=== PATIENT | female | born 1955 | race African-American/Black ===

== ENCOUNTER 2018-01-19 16:32 | Inpatient (IN) | payer MEDICARE, OTHER ==
[~2018-01-19] VITALS: Ht 162.6 cm; Wt 89.8 kg
[2018-01-19 17:03] VITALS: BP 174/106
[2018-01-19] MEDS ORDERED: Norco 5mg/325mg tab ORAL ONE ×3 (17:30→21:30)
--- NOTE | 2018-01-19 17:30 | Emergency Room Report ---
History of Present Illness General Chief Complaint: Lower Back Pain or Injury Source: Patient Present Illness HPI 62-year-old female presents to the emergency department complaining of 10 out of 10 in severity pain in the lower back and bilateral hips as well as head status post mechanical slip and fall earlier today. Patient reports that she hit the right side of her head and denies loss of consciousness. Pt. reports that prior to fall she experienced dizziness and states she has been having dizziness intermittently x 3 months as well as dull right sided MARISCAL that comes and goes. Patient states that she has a cardiac history as well as TIA x 2 and that she normally goes to [facility]. Pt. reports taking Motrin with no relief. Pt. reports that she was on blood thinning medications for a while but was d/c'd from them. Pt. denies fevers or chills. she states she is having urinary frequency, no dysuria or hematuria. Allergies: Coded Allergies: No Known Allergies (Unverified , 01/19/18) Patient History Past Medical History: see triage record Past Surgical History: none Pertinent Family History: none Now: No Reviewed Nursing Documentation: PMH: Agreed; PSxH: Agreed Nursing Documentation-PMH Hx Cardiac Problems: Yes - stent Hx Hypertension: Yes - hyperlipidemia, arthritis, kidney problems Hx Asthma: Yes - emphysema Review of Systems All Other Systems: negative except mentioned in HPI Physical Exam Vital Signs Date Time Temp Pulse Resp B/P (MAP) Pulse Ox O2 Delivery O2 Flow Rate FiO2 01/19/18 16:50 99.0 80 18 174/106 97 99.0 Sp02 EP Interpretation: reviewed, normal General Appearance: alert, GCS 15, non-toxic, mild distress Head: normocephalic, atraumatic - no palpable hematomas, TTP to the right temporal area. Eyes: bilateral eye normal inspection, bilateral eye PERRL ENT: hearing grossly normal, normal voice Neck: full range of motion, no bony tend Respiratory: lungs clear, normal breath sounds, speaking full sentences Cardiovascular #1: regular rate, rhythm Gastrointestinal: non tender, soft Genitourinary: normal inspection, no CVA tenderness Musculoskeletal: back normal, normal range of motion, tender - TTP in the Lumbosacral area as well as bilateral hips. Pt. is ambulatory with cane assistance and has a compensatory gait/ limp, no dragging noted. Neurologic: alert, oriented x3, responsive, motor strength/tone normal, sensory intact, speech normal, grossly normal Psychiatric: judgement/insight normal Skin: normal color, no rash, warm/dry, well hydrated, other - no open wounds, bruises or abrasions noted. Medical Decision Making PA Attestation Dr. Perry is my supervising physician whom pt. management has been discussed with. Diagnostic Impression: Primary Impression: Dizziness Additional Impressions: Contusion of back Qualified Codes: S20.229A - Contusion of unspecified back wall of thorax, initial encounter Hip pain, bilateral Fall Qualified Codes: W19.XXXA - Unspecified fall, initial encounter ER Course 62-year-old female presents to the emergency department complaining of 10 out of 10 in severity pain in the lower back and bilateral hips as well as head status post mechanical slip and fall earlier today. Patient reports that she hit the right side of her head and denies loss of consciousness. Pt. reports that prior to fall she experienced dizziness and states she has been having dizziness intermittently x 3 months as well as dull right sided MARISCAL that comes and goes. Patient states that she has a cardiac history as well as TIA x 2 and that she normally goes to [facility]. Pt. reports taking Motrin with no relief. Pt. reports that she was on blood thinning medications for a while but was d/c'd from them. Pt. denies fevers or chills. she states she is having urinary frequency, no dysuria or hematuria. Ddx considered but are not limited to Fracture, dislocation, contusion, Sprain/ Strain/Spasm, Epidural abscess, ICH/Subdural hematoma just to name a few. Vital signs: are WNL, pt. is afebrile H&PE are most consistent with musculoskeletal injury will perform imaging to r/ o fractures/dislocations. ORDERS: - CT Head, C-spine, and Abdomen/pelvis Non Contrasted -EK BPM -CBC,CMP, Troponin: Unremarkable -UA: unremarkable ED INTERVENTIONS: -Toradol IV - [place] PO x 2 DISPOSITION: at this time pt. will be admitted to Dr. Frazier for Dizziness. Dr. Frazier was contacted when pt. initially presented, will do work-up and admit to Dr. Frazier to [facility] floor to continue pt. care management. Labs Test 10/4/18 17:55 White Blood Count 6.4 K/UL (4.8-10.8) Red Blood Count 4.29 M/UL (4.20-5.40) Hemoglobin 13.9 G/DL (12.0-16.0) Hematocrit 42.6 % (37.0-47.0) Mean Corpuscular Volume 99 FL (80-99) Mean Corpuscular Hemoglobin 32.3 PG (27.0-31.0) Mean Corpuscular Hemoglobin Concent 32.5 G/DL (32.0-36.0) Red Cell Distribution Width 13.6 % (11.6-14.8) Platelet Count 277 K/UL (150-450) Mean Platelet Volume 6.5 FL (6.5-10.1) Neutrophils (%) (Auto) 35.4 % (45.0-75.0) Lymphocytes (%) (Auto) 50.7 % (20.0-45.0) Monocytes (%) (Auto) 8.4 % (1.0-10.0) Eosinophils (%) (Auto) 3.5 % (0.0-3.0) Basophils (%) (Auto) 2.0 % (0.0-2.0) Sodium Level 143 MMOL/L (136-145) Potassium Level 3.9 MMOL/L (3.5-5.1) Chloride Level 109 MMOL/L (98-107) Carbon Dioxide Level 26 MMOL/L (21-32) Anion Gap 8 mmol/L (5-15) Blood Urea Nitrogen 16 mg/dL (7-18) Creatinine 0.9 MG/DL (0.55-1.30) Estimat Glomerular Filtration Rate > 60 mL/min (>60) Glucose Level 100 MG/DL (74-106) Calcium Level 10.8 MG/DL (8.5-10.1) Total Bilirubin 0.3 MG/DL (0.2-1.0) Aspartate Amino Transf (AST/SGOT) 75 U/L (15-37) Alanine Aminotransferase (ALT/SGPT) 69 U/L (12-78) Alkaline Phosphatase 99 U/L (46-116) Troponin I 0.009 ng/mL (0.000-0.056) Total Protein 8.0 G/DL (6.4-8.2) Albumin 3.2 G/DL (3.4-5.0) Globulin 4.8 g/dL Albumin/Globulin Ratio 0.7 (1.0-2.7) EKG Diagnostic Results EP Interpretation: Dr. Perry Rate: normal - 74 BPM Rhythm: NSR ST Segments: no acute changes ASA given to the pt in ED: No PA Scribe Text This Interpretation was scribed by JAYDON Ley. CT/MRI/US Diagnostic Results CT/MRI/US Diagnostic Results #1: Imaging Test Ordered: CT Head No Contrast Impression sinusitis, no mention of acute bleed, shift, mass effect or fractures per Dr. TRAN CT/MRI/US Diagnostic Results #2: Imaging Test Ordered: CT C-SPine No contrast Impression per radiology report no mention of acute fractures. CT/MRI/US Diagnostic Results #3: Imaging Test Ordered: CT Abdomen and Pelvis No Contrast Impression per radiology report no mention of acute fractures. Last Vital Signs Date Time Temp Pulse Resp B/P (MAP) Pulse Ox O2 Delivery O2 Flow Rate FiO2 01/19/18 17:03 99.0 80 18 174/106 97 99.0 Status: improved Disposition: ADMITTED INPATIENT Condition: Serious Referrals: Laurie Fernandez MD (PCP) Eli Ley Jan 19, 2018 17:30
[2018-01-19] MEDS ORDERED: Ketorolac 30mg Inj IV ONE (18:15)
[2018-01-19 18:31] LABS: ANION GAP 8 mmol/L (5-15); BLOOD UREA NITROGEN 16 mg/dL (7-18); CALCIUM 10.8 MG/DL (8.5-10.1); CARBON DIOXIDE 26 MMOL/L (21-32); CHLORIDE 109 MMOL/L (98-107); CREATININE 0.9 MG/DL (0.55-1.30); POTASSIUM 3.9 MMOL/L (3.5-5.1); SODIUM 143 MMOL/L (136-145)
[2018-01-19 18:35] LABS: ALANINE AMINOTRANSFERASE 69 U/L (12-78); ALBUMIN 3.2 G/DL (3.4-5.0); ALBUMIN/GLOBULIN RATIO 0.7 (1.0-2.7); ALKALINE PHOSPHATASE 99 U/L (46-116); ASPARTATE AMINO TRANSFERASE 75 U/L (15-37); BILIRUBIN,TOTAL 0.3 MG/DL (0.2-1.0)
[2018-01-19 18:42] LABS: EOSINOPHILS % (AUTO) 3.5 % (0.0-3.0); HEMATOCRIT 42.6 % (37.0-47.0); HEMOGLOBIN 13.9 G/DL (12.0-16.0); LYMPHOCYTES % (AUTO) 50.7 % (20.0-45.0); MEAN CORPUSCULAR VOLUME 99 FL (80-99); MONOCYTES % (AUTO) 8.4 % (1.0-10.0); NEUTROPHILS % (AUTO) 35.4 % (45.0-75.0); PLATELET COUNT 277 K/UL (150-450); RED BLOOD COUNT 4.29 M/UL (4.20-5.40); RED CELL DISTRIBUTION WIDTH 13.6 % (11.6-14.8); WHITE BLOOD COUNT 6.4 K/UL (4.8-10.8)
[2018-01-19 21:00] VITALS: BP 140/90
[2018-01-19 22:09] LABS: APPEARANCE,URINE CLEAR; BILIRUBIN, URINE NEGATIVE (NEGATIVE); GLUCOSE, URINE (UA) NEGATIVE (NEGATIVE); KETONES,URINE NEGATIVE (NEGATIVE); LEUKOCYTE ESTERASE ,URINE NEGATIVE (NEGATIVE); NITRITE,URINE NEGATIVE (NEGATIVE); PH,URINE 6 (4.5-8.0); PROTEIN,URINE NEGATIVE (NEGATIVE); UROBILINOGEN,URINE 1 MG/DL (0.0-1.0)
[2018-01-19 22:10] LABS: COLOR,URINE YELLOW
[2018-01-19] MEDS ORDERED: Acetaminophen 500mg (ES) tab ORAL PRN (23:45)
[2018-01-20] MEDS: Albuterol/Ipratropium 3ml neb HHN SCH ×4 (01:01→20:39)
[2018-01-20] MEDS ORDERED: Acetaminophen 500mg (ES) tab ORAL PRN ×2 (03:30→19:00)
[2018-01-20 03:36] VITALS: BP 157/94
[2018-01-20] MEDS: Labetalol 200mg tab ORAL SCH ×3 (04:28→21:08)
[2018-01-20] MEDS: Norco 5mg/325mg tab ORAL PRN ×3 (04:29→19:32)
[2018-01-20 08:00] VITALS: BP 170/107
[2018-01-20] MEDS: Docusate 100mg cap ORAL SCH ×2 (08:12→17:12)
--- NOTE | 2018-01-20 08:35 | Diagnostic Imaging Report ---
Indication: Neck pain, status post fall Technique: Spiral acquisitions obtained through the cervical spine. No IV contrast utilized. Multiplanar reconstructions were generated. Total dose length product 1751.6 mGycm. CTDIvol(s) 70.38,20.94 mGy. Dose reduction achieved using automated exposure control. Comparison: none Findings: No acute fractures. No dislocations. Normal bony alignment. No prevertebral soft tissue swelling. Vertebral heights are preserved. At C3-4, there is mild degenerative disc narrowing. No significant disc bulge or protrusion, spinal stenosis, or neural foraminal stenosis. At C4-5, there is mild degenerative disc narrowing, minimal posterior broad-based annular bulge. Minimal degenerative right neural foramina narrowing. At C5-6, there is moderate degenerative disc narrowing. There is moderate narrowing of the right neural foramen. At C6-7, there is moderate degenerative disc narrowing. And significant disc bulge or protrusion, spinal stenosis, or neural foraminal stenosis. At C7-T1, no significant disc bulge or protrusion, spinal stenosis, or neural foraminal stenosis. Bullous changes are seen at the lung bases. No gross cervical mass or adenopathy. The visualized upper aerodigestive tract is unremarkable. Impression: Mild degenerative changes, as described. No acute bony trauma Incidental finding of bilateral apical pulmonary bullous changes This agrees with the preliminary interpretation provided overnight by Dr. Aguero The CT scanner at [facility] is accredited by the [employer] and the scans are performed using protocols designed to limit radiation exposure to as low as reasonably achievable to attain images of sufficient resolution adequate for diagnostic evaluation.
--- NOTE | 2018-01-20 08:36 | Diagnostic Imaging Report ---
Indications: Head pain, status post fall Technique: Spiral acquisitions obtained through the brain. Angled axial and coronal 5 x 5 mm slices were reconstructed. Total dose length product 1751.6 mGycm. CTDI vol(s) 70.38,20.94 mGy. Dose reduction achieved using automated exposure control Comparison: None. Findings: 6 there is mild age-related cerebral volume loss. No acute intracranial hemorrhage or edema. No mass effect nor midline shift. Normal dupont-white differentiation. Visualized orbits are unremarkable. There is left maxillary sinus disease. Intact calvarium. Normal dupont-white differentiation. Minimal periventricular deep white matter low-attenuation, consistent with chronic ischemic change noted. Impression: Age-related changes. Negative for acute intracranial bleed or mass effect Left maxillary sinus disease This agrees with the preliminary interpretation provided overnight by Dr. Aguero The CT scanner at [facility] is accredited by the [employer] and the scans are performed using protocols designed to limit radiation exposure to as low as reasonably achievable to attain images of sufficient resolution adequate for diagnostic evaluation.
--- NOTE | 2018-01-20 08:47 | Diagnostic Imaging Report ---
Indication: Tenderness. Pain in lower back and bilateral hips status post mechanical fall earlier today Technique: Spiral acquisitions obtained through the abdomen and pelvis. No oral contrast utilized, per emergency room physician request No IV contrast utilized, per referring physician request.. Multiplanar reconstructions were generated. Total dose length product 1006.5 mGycm. CTDIvol(s) 19.51 mGy. Dose reduction achieved using automated exposure control Comparison: None Findings: Small bulla is seen at the right lung base. The heart is mildly enlarged. The bones demonstrate degenerative spondylosis changes. There are otherwise intact. No significant soft tissue hematoma demonstrated. Lack of IV contrast limits assessment of the solid organs. The liver, gallbladder, bile ducts, pancreas, spleen, adrenals, right kidney are all grossly unremarkable. A cyst is seen coming off the medial lower pole of the left kidney. Uterus is unremarkable. 19 mm cyst is seen in the right ovary. No evidence of colonic diverticulosis. No evidence of diverticulitis. Small appendicolith is demonstrated at the orifice of the appendix, appendix otherwise normal. No small bowel distention. No free or loculated intraperitoneal gas or fluid. There is a tiny fat-containing umbilical hernia. Impression: No acute abnormality or evidence of significant posttraumatic abnormality. Note, however, that assessment of the solid organs is limited in the absence of IV contrast Left renal cyst and right ovarian cyst, presumably benign, no further follow-up necessary Borderline cardiomegaly Evidence of bullous COPD Other incidental findings as noted, including degenerative spondylosis, small fat-containing umbilical hernia This agrees with the preliminary interpretation provided overnight by Dr. Aguero The CT scanner at [facility] is accredited by the [employer] and the scans are performed using protocols designed to limit radiation exposure to as low as reasonably achievable to attain images of sufficient resolution adequate for diagnostic evaluation.
[2018-01-20] MEDS ORDERED: Labetalol 200mg tab ORAL SCH (09:00)
[2018-01-20] MEDS ORDERED: Norco 5mg/325mg tab ORAL PRN (09:00)
[2018-01-20] MEDS ORDERED: Heparin 5000 units/ml inj SUBQ SCH (09:00)
[2018-01-20] MEDS ORDERED: Aspirin Baby 81mg ORAL SCH (09:00)
[2018-01-20] MEDS ORDERED: Losartan 50mg tab ORAL SCH (09:00)
[2018-01-20 10:56] VITALS: BP 159/90
[2018-01-20] MEDS ORDERED: Gadavist 7.5mMol/7.5ml vial IV PRN (11:30)
[2018-01-20] MEDS ORDERED: HYDROmorphone 2mg tab ORAL PRN (12:38)
--- NOTE | 2018-01-20 15:14 | Consultation ---
Consult Note Consult Note NEUROLOGY CONSULTATION: Full note dictated #[id number] 62 y/o, RH, BF with PH of HTN, CAD, CVD with prior strokes with left paresis, arthritis and chronic LBP. On 01/19/18 she was showering felt lightheaded, and then passed out. He was brought to the hospital for increased buttock and LBP. Her C-spine CT revealed stenosis at the C6-7 level and thus this evaluation was requested by Dr Womack. ON EXAM: Problems with orientation, memory, HCF, language. Brisker left UE/LE DTRs Slow gait. CT of C-spine with "moderate degenerative disc narrowing" at the C6-7 level. IMPRESSION: 1. Syncope - most probably vasovagal. 2. Moderate C6-7 stenosis with no myelopathic signs. REC: Await MRI of C-spine. W/U syncope with cardiac monitoring and labs. Vicente Sow M.D., M.S.P.Gilda. VICENTE SOW Jan 20, 2018 15:14
--- NOTE | 2018-01-20 17:03 | Diagnostic Imaging Report ---
Indication: Cervical spine pain status post mechanical fall yesterday Technique: Sagittal T1 FLAIR, sagittal T2 FRFSE, sagittal STIR, axial T2 FRFSE, sagittal 3-D COSMIC ASPIR, pre and postcontrast sagittal and axial T1 fat saturated images of the cervical spine Comparison: CT cervical spine 01/19/2018 Findings: Bony alignment is normal. Vertebral body heights are preserved. Vertebral body marrow signal is normal. No signal abnormality demonstrated to suggest fracture. No significant signal abnormality is seen in the soft tissues to suggest ligamentous injury.. No prevertebral soft tissue swelling. No cord signal abnormality demonstrated. At C3-4, there is minimal circumferential annular bulge. No significant disc bulge or protrusion, spinal stenosis, or neural foraminal stenosis. At C4-5, there is mild right neural foraminal stenosis. There is minimal circumferential annular bulge. No evidence of spinal stenosis. At C5-6, there is mild to moderate degenerative disc narrowing. There is mild narrowing of the right neural foramen. No significant disc bulge or protrusion or spinal stenosis. At C6-7, there is mild degenerative disc narrowing. No significant disc bulge or protrusion, spinal stenosis, or neural foraminal stenosis. At the remaining levels, no significant disc bulge or protrusion, spinal stenosis, or neural foraminal narrowing. Postcontrast images demonstrate no unusual contrast enhancement. Impression: No evidence of acute bony trauma, acute ligamentous injury, or abnormal contrast enhancement. Mild degenerative changes, as detailed above
--- NOTE | 2018-01-20 17:15 | History and Physical Report ---
DATE OF ADMISSION: 01/19/2018 CHIEF COMPLAINT: Syncopal episode. HISTORY OF PRESENT ILLNESS: This is a 62-year-old female, who presented to the emergency department after a fall and hitting her head. The patient claims that she lost her consciousness and she fell in the shower and hit her head yesterday. Following the fall, the patient started having severe headaches. PAST MEDICAL HISTORY: 1. Hypertensive cardiovascular disease. 2. Ischemic heart disease. 3. Status post coronary stenting. 4. Hyperlipidemia. 5. Chronic kidney disease. 6. Degenerative joint disease. MEDICATIONS: Allopurinol, amlodipine, baby aspirin, chlorthalidone, Colace, oral iron, labetalol, Lidoderm, and losartan. ALLERGIES: No known drug allergies. FAMILY HISTORY: Unremarkable. SOCIAL HISTORY: She lives at home. HABITS: She is nonsmoker and nondrinker. There is no history of illicit drug abuse. REVIEW OF SYSTEMS: HEENT: Significant for headaches following the fall. RESPIRATORY: She denies shortness of breath, cough, or hemoptysis. CARDIAC: She denies chest pain or palpitations. GASTROINTESTINAL: No history of hematochezia, melena, hematemesis, diarrhea, or constipation. NEUROLOGICAL: Significant for the above described syncopal episode. PHYSICAL EXAMINATION: GENERAL: This is an elderly female, who is in no acute distress. VITAL SIGNS: Blood pressure 159/90, pulse 75 and regular, respirations 18, and temperature not well recorded. The recording is 207.1, which is obviously false. The previous one is 97.3. HEENT: The head is normocephalic and atraumatic. Pupils are equal, round, and reactive to light and accommodation consensually. NECK: Supple. Trachea midline. There was no lymphadenopathy or thyromegaly. LUNGS: Clear to auscultation and percussion. HEART: Regular rate and rhythm without rubs, murmurs, or gallops. ABDOMEN: Soft and nontender. Bowel sounds were active. EXTREMITIES: No clubbing, cyanosis, or edema. NEUROLOGIC: She is alert and oriented x4. Cranial nerves II through XII intact. LABORATORY AND ANCILLARY DATA: Serum calcium 10.8 and albumin 3.2. Otherwise, chemistry within normal limits. CBC within normal limits. A CT scan of abdomen and pelvis shows left renal cyst and right ovarian cyst presumably benign, borderline cardiomegaly, evidence of bullous COPD, degenerative spondylosis, and small fat containing the umbilical hernia. Cervical spine CT, no fracture, [id number] degenerative changes, especially moderate degenerative disc narrowing at C6-7. There is a significant disc bulge protrusion and spinal stenosis. At C6-7, there is moderate degenerative disc narrowing and significant disc bulge. A CT scan of the head, no significant changes. ASSESSMENT: 1. Syncopal episode. 2. Hypertensive cardiovascular disease. 3. Ischemic heart disease. 4. Status post coronary stenting. 5. Hyperlipidemia. 6. Chronic kidney disease. 7. Degenerative joint disease. 8. Evidence on cervical spine CT of Critical C6-7 disc bulge! PLAN: There is no Neurology services in this hospital or Neurosurgery. The patient needs to be transferred to higher level of care. We will put the patient on transfer list for [facility]. Called Dr. Cassidy Underwood Spine Surgeon @ [facility]. Kavita on Transfer List. Obtain MRI of C. Spine. Called Dr. Kristopher Young for Neuro Consult. Bed Rest. Laurie Fernandez M.D. DR: NAKITA JOB#: [id number] CC: MILY
--- NOTE | 2018-01-20 19:15 | Consultation ---
DATE OF CONSULTATION: 01/20/2018 NEUROLOGY CONSULTATION CONSULTING PHYSICIAN: Kristopher Young M.D. REQUESTING PHYSICIAN: Laurie Fernandez M.D. HISTORY: Ms. Mili Pressley is a 62-year-old, right-handed, black lady, who does have a past history of hypertension, coronary artery disease with angina, cerebrovascular disease with prior strokes with left-sided weakness, and arthritis involving multiple joints, including her low back as a result of which she has chronic low back pain. She was functioning relatively well and was at home showering on 01/19/2018 when she felt lightheaded and then passed out and fell in the shower. She apparently bumped her head and also bumped her buttocks. When she got up, she was having significant buttock pain and as a result of that, she came to the [facility] emergency room and was evaluated. In the process of being evaluated, a C-spine CT scan was done which reveals stenosis at the C6-C7 level and thus evaluation was requested by Dr. Fernandez. With regards to syncopal episodes, she states that she has fainted about 2 or 3 times in the past prior to this episode that happened yesterday. All these episodes have been associated with lightheadedness prior to her passing out. She always passes out for a few seconds and when she wakes up she is quite clear in her mind. PAST HISTORY: Significant for hypertension, coronary artery disease, cerebrovascular disease with prior strokes and left sided weakness, arthritis involving multiple joints, and chronic low back pain. FAMILY HISTORY: Significant for high blood pressure in numerous family members. PERSONAL HISTORY: Home: She lives with her . 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 Habits: She used to smoke in the past but stopped smoking numerous years ago. She denies use of alcohol or illicit drugs. PRESENT MEDICATIONS: Dilaudid, heparin for DVT prophylaxis, ferrous sulfate, chlorthalidone, DSS, aspirin, allopurinol, Cozaar, amlodipine, Tylenol PRN, labetalol, [place] PRN., and DuoNeb inhaler PRN PHYSICAL EXAMINATION: GENERAL: She is a well-developed, well-nourished, obese, black lady, lying in bed, in no acute distress. VITAL SIGNS: Pulse 75/minute, blood pressure 159/90 mmHg, respirations 18/minute, and temperature 97.3 degrees Fahrenheit. HEAD: Normocephalic and atraumatic. EENT: Examination benign. NECK: No neck rigidity was observed. NEUROLOGICAL EXAMINATION: MENTAL STATUS EXAMINATION: She was awake and alert. She was oriented to person, place, and time except for the exact date. She was able to recall 3/3 words immediately, but could only remember 2/3 words in 1 minute and 3 minutes. She was able to remember presidents, Trump and Obama, but could not remember presidents prior to that. Her mathematical skills were impaired. Her visuospatial function was relatively good. SPEECH: She had no dysarthria. LANGUAGE: She had anomia for low-frequency words. CRANIAL NERVE EXAMINATION: II: The visual jules were intact to confrontation testing. III, IV & : The external ocular movements were full, and the pupils 3 mm in diameter, equal, round, regular, and reactive to light. V: She had normal facial sensations, and the temporales, masseters, and pterygoids functioned normally. VII: She had normal facial expressions and no facial asymmetry. VIII: She was able to hear well bilaterally and had no nystagmus. IX: The palate moved symmetrically on phonation. X: She had no hoarseness of voice. XI: The sternocleidomastoids and trapezii functioned normally. XII: The tongue was in the midline without any fasciculations or atrophy. MOTOR SYSTEM: The tone was normal in all four extremities. Examination of muscle mass revealed no focal wasting. Examination of power revealed grade 5/5 power in all muscle groups tested. SENSORY EXAMINATION: She had intact sensation to pinprick, light touch, and graphesthesia. She had no segmental sensory level to light touch. COORDINATION: She performed well on hmjtoc-vj-xyhh and eaxo-th-enxx testing. On Romberg test, she swayed, but did not fall to one side or the other. REFLEXES: 2+ on the right and 2++ on the left in the biceps, triceps, brachioradialis, and knees, 0 at both ankles. The plantar responses were flexor bilaterally. STANCE: She stood up independently. GAIT: She walked well independently but was slow. DIAGNOSTIC IMPRESSION: 1. Ms. Mili Pressley is a 62-year-old, right-handed, black lady, who does have a past history of hypertension, coronary artery disease, cerebrovascular disease with prior strokes, and left paresis, arthritis, chronic low back pain, and prior episodes of syncope who on 01/19/2018 was showering, felt lightheaded and then passed out in the shower. She was brought into the hospital for increased buttock and low back pain. A CT scan of the cervical spine apparently revealed a stenosis at the C6-C7 level. 2. On neurological examination at this time, she does have problems with orientation, recent and remote memory, higher cognitive function, and language. She also has brisker reflexes on the left side compared to the right side. Her gait is slow. She however does not demonstrate any signs of the cervical spinal cord dysfunction. 3. The patient's history and neurologic examination are most compatible with an episode of vasovagal syncope. 4. The cervical spinal stenosis is not producing any myelopathic signs or symptoms at this time. RECOMMENDATIONS: 1. Agree with management thus far. 2. An MRI scan of the cervical spine has been done. I shall review it when it becomes available. 3. She should be worked up thoroughly for treatable causes of syncope. 4. Her cardiac rhythm should be monitored to evaluate her for her syncopal episode. 5. In addition to the laboratory tests already done, a B12 level, folate level, vitamin D level, RPR, glycohemoglobin, Westergren sedimentation rate, thyroid function tests should be ordered to evaluate the patient for her syncopal episode. 6. The patient should be kept as active as possible. 7. Depending on the results of the above-mentioned tests, further recommendations will be given. Thank you for entrusting me with the care of Ms. Pressley. I shall follow her with you. Kristopher Young M.D., M.S.P.H. DR: Chema JOB#: [id number]
[2018-01-20 20:00] VITALS: BP 151/88
[2018-01-20] MEDS: HYDROmorphone 2mg tab ORAL PRN (21:05)
[2018-01-20] MEDS: Losartan 50mg tab ORAL SCH (21:06)
[2018-01-20] MEDS: Heparin 5000 units/ml inj SUBQ SCH (21:08)
[2018-01-21] VITALS: BP 142/82
[2018-01-21] MEDS: Albuterol/Ipratropium 3ml neb HHN SCH ×3 (01:22→13:00)
[2018-01-21] MEDS: HYDROmorphone 2mg tab ORAL PRN (03:19)
[2018-01-21 04:00] VITALS: BP 122/95
[2018-01-21 08:00] VITALS: BP 140/88
[2018-01-21] MEDS: Losartan 50mg tab ORAL SCH (08:59)
[2018-01-21] MEDS: Labetalol 200mg tab ORAL SCH (08:59)
[2018-01-21] MEDS ORDERED: Aspirin Baby 81mg ORAL SCH (09:00)
[2018-01-21] MEDS: Heparin 5000 units/ml inj SUBQ SCH (09:00)
[2018-01-21] MEDS ORDERED: Docusate 100mg cap ORAL SCH (09:00)
[2018-01-21] MEDS: Norco 5mg/325mg tab ORAL PRN (09:09)
--- NOTE | 2018-01-21 10:04 | General Progress Note ---
Assessment/Plan Assessment/Plan MRI Negative No need for Neurosurgical Eval. Findings communicated to Dr. Cassidy Harris @ [facility]. [facility] Dr. Young's Eval Subjective Allergies: Coded Allergies: No Known Allergies (Unverified , 01/19/18) Subjective No new c/o Objective Last 24 Hour Vital Signs Date Time Temp Pulse Resp B/P (MAP) Pulse Ox O2 Delivery O2 Flow Rate FiO2 01/21/18 09:01 73 140/88 01/21/18 08:59 140/88 01/21/18 08:59 73 140/88 01/21/18 08:00 97.9 80 18 140/88 (105) 95 97.9 01/21/18 08:00 73 01/21/18 07:28 74 18 100 Room Air 21 01/21/18 07:22 84 18 99 Room Air 21 01/21/18 04:00 98.1 71 12 122/95 (104) 95 98.1 01/21/18 04:00 70 01/21/18 01:32 80 20 98 Room Air 21 01/21/18 01:22 78 16 100 Room Air 21 01/21/18 00:00 98.1 73 20 142/82 (102) 96 98.1 01/21/18 00:00 76 01/20/18 21:08 81 151/88 01/20/18 21:06 151/88 01/20/18 21:00 Room Air 01/20/18 20:49 82 20 98 Room Air 21 01/20/18 20:39 81 18 98 Room Air 21 01/20/18 20:00 98.2 71 16 151/88 (109) 96 98.2 01/20/18 20:00 71 01/20/18 13:47 Room Air 01/20/18 13:45 Room Air 01/20/18 13:30 207.1 01/20/18 13:00 207.1 01/20/18 11:12 207.1 01/20/18 10:56 207.1 75 18 159/90 (113) 100 207.1 01/20/18 10:42 97.3 Intake and Output 01/20/18 01/21/18 19:00 07:00 Intake Total 720 ml 300 ml Output Total 0 ml Balance 720 ml 300 ml Intake Oral 720 ml 300 ml Output Urine Total 0 ml # Voids 3 # Bowel Movements 1 Laboratory Tests 01/20/18 17:10: Erythrocyte Sedimentation Rate 39H, Hemoglobin A1c 5.5, Total Protein (PEP) [ Pending], Albumin (PEP) [Pending], Globulin (PEP) [Pending], Albumin/Globulin Ratio [Pending], Dfcwm-1-Dvoetqgug [Pending], Smqbj-6-Satwbkndd [Pending], Beta Globulins [Pending], Beta Gamma Globulin [Pending], PEP Abnormal Protein Bands [ Pending], Protein Electrophoresis Interpret [Pending], Vitamin B12 Level 581, Vitamin D 25-Hydroxy [Pending], 25-Hydroxy Vitamin D2 [Pending], 25-Hydroxy Vitamin D3 [Pending], Folate 14.7, Thyroid Stimulating Hormone (TSH) 2.636, Rapid Plasma Reagin Non reactive Height (Feet): 5 Height (Inches): 4.00 Weight (Pounds): 198 Objective Cv RR Lungs CTA Abd SNT. BS + E No CCE Laurie Fernandez MD Jan 21, 2018 10:04
[2018-01-21] MEDS ORDERED: Gadavist 7.5mMol/7.5ml vial IV PRN (11:30)
[2018-01-21 12:00] VITALS: BP 132/86
--- NOTE | 2018-01-21 12:54 | Consultation ---
History of Present Illness General Date patient seen: Jan 20, 2018 Chief Complaint: Lower Back Pain or Injury Present Illness HPI 62-year-old female, who presented to the emergency department after a fall and hitting her head the pt has severe anxiety and unable to sleep. the pt stated that she feels weak and anxious. Allergies: Coded Allergies: No Known Allergies (Unverified , 01/19/18) Medication History Scheduled Mirtazapine (Remeron), 7.5 MG ORAL BEDTIME, (Reported) Patient History Limited by: medical condition History Provided By: Patient, Medical Record, PMD Healthcare decision maker opal Resuscitation status Full Code Advanced Directive on File No Review of Systems Psychiatric: Reports: prior hx, anxiety, depressed feelings Physical Exam General Appearance: no apparent distress, alert Neurologic: oriented x 3, responsive, depressed affect Last 24 Hour Vital Signs Date Time Temp Pulse Resp B/P (MAP) Pulse Ox O2 Delivery O2 Flow Rate FiO2 01/21/18 12:00 98.1 76 18 132/86 (101) 96 98.1 01/21/18 12:00 72 01/21/18 09:01 73 140/88 01/21/18 09:00 Room Air 01/21/18 08:59 140/88 01/21/18 08:59 73 140/88 01/21/18 08:00 97.9 80 18 140/88 (105) 95 97.9 01/21/18 08:00 73 01/21/18 07:28 74 18 100 Room Air 21 01/21/18 07:22 84 18 99 Room Air 21 01/21/18 04:00 98.1 71 12 122/95 (104) 95 98.1 01/21/18 04:00 70 01/21/18 01:32 80 20 98 Room Air 21 01/21/18 01:22 78 16 100 Room Air 21 01/21/18 00:00 98.1 73 20 142/82 (102) 96 98.1 01/21/18 00:00 76 01/20/18 21:08 81 151/88 01/20/18 21:06 151/88 01/20/18 21:00 Room Air 01/20/18 20:49 82 20 98 Room Air 21 01/20/18 20:39 81 18 98 Room Air 21 01/20/18 20:00 98.2 71 16 151/88 (109) 96 98.2 01/20/18 20:00 71 01/20/18 13:47 Room Air 01/20/18 13:45 Room Air 01/20/18 13:30 207.1 01/20/18 13:00 207.1 Intake and Output 01/20/18 01/21/18 19:00 07:00 Intake Total 720 ml 300 ml Output Total 0 ml Balance 720 ml 300 ml Intake Oral 720 ml 300 ml Output Urine Total 0 ml # Voids 3 # Bowel Movements 1 Laboratory Tests Test 01/20/18 17:10 Erythrocyte Sedimentation Rate 39 MM/HR (0-30) H Hemoglobin A1c 5.5 % (4.3-6.0) Total Protein (PEP) Pending Albumin (PEP) Pending Globulin (PEP) Pending Albumin/Globulin Ratio Pending Xxivd-7-Rtlqfyavq Pending Krbqh-3-Peqeiaafi Pending Beta Globulins Pending Beta Gamma Globulin Pending PEP Abnormal Protein Bands Pending Protein Electrophoresis Interpret Pending Vitamin B12 Level 581 PG/ML (193-986) Vitamin D 25-Hydroxy Pending 25-Hydroxy Vitamin D2 Pending 25-Hydroxy Vitamin D3 Pending Folate 14.7 NG/ML (8.6-58.9) Thyroid Stimulating Hormone (TSH) 2.636 uiU/mL (0.358-3.740) Rapid Plasma Reagin Non reactive (Non Reactive) Height (Feet): 5 Height (Inches): 4.00 Weight (Pounds): 198 Medications Current Medications Medications (Trade) Dose Ordered Sig/Love Route PRN Reason Start Time Stop Time Status Last Admin Dose Admin Acetaminophen (Tylenol) 500 mg Q6H PRN ORAL Mild Pain/Temp > 100.5 01/20/18 19:00 02/19/18 18:59 Acetaminophen/ Hydrocodone Bitart ([place] 5/325) 1 tab Q6H PRN ORAL For Pain 01/20/18 19:00 01/27/18 18:59 01/21/18 09:09 Albuterol/ Ipratropium (Albuterol/ Ipratropium) 3 ml Q6HRT HHN 01/20/18 19:00 01/25/18 00:59 01/21/18 07:21 Allopurinol (Allopurinol) 300 mg DAILY ORAL 01/21/18 09:00 02/19/18 08:59 01/21/18 09:00 Amlodipine Besylate (Norvasc) 10 mg DAILY ORAL 01/21/18 09:00 02/19/18 08:59 01/21/18 09:01 Aspirin (ASA) 81 mg DAILY ORAL 01/21/18 09:00 02/19/18 08:59 Chlorthalidone (Chlorthalidone) 12.5 mg DAILY ORAL 01/21/18 09:00 02/19/18 08:59 01/21/18 09:00 Docusate Sodium (Colace) 100 mg TWICE A DAY ORAL 01/21/18 09:00 02/19/18 08:59 01/21/18 08:59 Ferrous Sulfate (Feosol) 325 mg THREE TIMES A DAY ORAL 01/21/18 09:00 02/19/18 08:59 01/21/18 09:00 Gadobutrol (Gadavist) 7.5 mmol NOW PRN IV Radiology Procedure 01/21/18 11:30 01/24/18 11:18 Heparin Sodium (Porcine) (Heparin 5000 units/ml) 5,000 units EVERY 12 HOURS SUBQ 01/20/18 21:00 02/19/18 08:59 01/20/18 21:08 Hydromorphone HCl (Dilaudid) 2 mg Q6H PRN ORAL for breakthrough pain 01/20/18 19:00 01/27/18 18:59 01/21/18 03:19 Labetalol HCl (Normodyne) 200 mg Q12HR ORAL 01/20/18 21:00 02/19/18 03:29 01/21/18 08:59 Losartan Potassium (Cozaar) 50 mg EVERY 12 HOURS ORAL 01/20/18 21:00 02/19/18 08:59 01/21/18 08:59 Mirtazapine (Remeron) 7.5 mg BEDTIME ORAL 01/21/18 21:00 02/20/18 20:59 UNV Assessment/Plan Status: unchanged Assessment/Plan anxious and unable to sleep remeron 7.5mg qhs provided kaiser/Yesica Land MD Jan 21, 2018 12:54
--- NOTE | 2018-01-21 14:08 | Physician Query ---
--------- THIS DOCUMENT IS A PERMANENT PART OF THE MEDICAL RECORD --------- PLEASE COMPLETE THE DOCUMENT BEFORE SIGNING Dear Dr. Fernandez Date: 01/21 Certified Pathology Assistant/CDS Name: Olegario Sylvester Certified Pathology Assistant / CDS Phone # [phone] Exercise your independent professional judgment when responding to query. Question asked do not imply a particular answer is desired/expected Clinical Documentation States: "Syncope" documented in H&P and progress notes. Patient has history of Ischemic heart disease, Hypertensive cardiovascular disease, coronary stenting. Please specify the cause for above symptom: [] Autonomic Imbalance [] Autonomic Dysfunction [] Orthostatic Hypotension [X] Psychogenic [] Shock [] Dehydration [] Dialysis Disequilibrium Syndrome [] Heat [] Other: [] Unable to determine Condition Present on Admission: [] Yes [] No [] Clinically Undeterminable Please also document in your Progress Notes and/or Discharge Summary and indicate if the condition was present on admission. Boogie MINOR
--- NOTE | 2018-01-21 15:55 | Neurology Progress Note ---
Interim History Interim History Interim History Ms. Pressley feels much better. She has had no further episodes of dizziness, lightheadedness, or syncope. The buttock pain is also much better. She is able to walk well. She had her C-spine MRI which revealed mild DJD but no cord pathology. She denies any new neurologic symptoms. Review of Systems Neuro Review of Systems Benign. Objective Physical Exam Last Vital Signs Date Time Temp Pulse Resp B/P (MAP) Pulse Ox O2 Delivery O2 Flow Rate FiO2 01/21/18 13:29 86 18 98 Room Air 21 01/21/18 12:00 98.1 132/86 (101) 98.1 Laboratory Tests Test 01/20/18 17:10 Erythrocyte Sedimentation Rate 39 MM/HR (0-30) H Hemoglobin A1c 5.5 % (4.3-6.0) Total Protein (PEP) Pending Albumin (PEP) Pending Globulin (PEP) Pending Albumin/Globulin Ratio Pending Lqryc-8-Txnyxadal Pending Dsfxd-7-Tahazmqeb Pending Beta Globulins Pending Beta Gamma Globulin Pending PEP Abnormal Protein Bands Pending Protein Electrophoresis Interpret Pending Vitamin B12 Level 581 PG/ML (193-986) Vitamin D 25-Hydroxy Pending 25-Hydroxy Vitamin D2 Pending 25-Hydroxy Vitamin D3 Pending Folate 14.7 NG/ML (8.6-58.9) Thyroid Stimulating Hormone (TSH) 2.636 uiU/mL (0.358-3.740) Rapid Plasma Reagin Non reactive (Non Reactive) Neurologic Exam Objective PHYSICAL EXAMINATION: GENERAL: She is a well-developed, well-nourished, obese, black lady, lying in bed, in no acute distress. HEAD: Normocephalic and atraumatic. EENT: Examination benign. NECK: No neck rigidity was observed. NEUROLOGICAL EXAMINATION: MENTAL STATUS EXAMINATION: She was awake and alert. She was oriented to person, place, and time except for the exact date. She was able to recall 3/3 words immediately, but could only remember 2/3 words in 1 minute and 3 minutes. She was able to remember presidents, Trump and Obama, but could not remember presidents prior to that. Her mathematical skills were impaired. Her visuospatial function was relatively good. SPEECH: She had no dysarthria. LANGUAGE: She had anomia for low-frequency words. CRANIAL NERVE EXAMINATION: II: The visual jules were intact to confrontation testing. III, IV & : The external ocular movements were full, and the pupils 3 mm in diameter, equal, round, regular, and reactive to light. V: She had normal facial sensations, and the temporales, masseters, and pterygoids functioned normally. VII: She had normal facial expressions and no facial asymmetry. VIII: She was able to hear well bilaterally and had no nystagmus. IX: The palate moved symmetrically on phonation. X: She had no hoarseness of voice. XI: The sternocleidomastoids and trapezii functioned normally. XII: The tongue was in the midline without any fasciculations or atrophy. MOTOR SYSTEM: The tone was normal in all four extremities. Examination of muscle mass revealed no focal wasting. Examination of power revealed grade 5/5 power in all muscle groups tested. SENSORY EXAMINATION: She had intact sensation to pinprick, light touch, and graphesthesia. She had no segmental sensory level to light touch. COORDINATION: She performed well on plhbsr-lt-zuaf and kzjl-kb-wefz testing. On Romberg test, she swayed, but did not fall to one side or the other. REFLEXES: 2+ on the right and 2++ on the left in the biceps, triceps, brachioradialis, and knees, 0 at both ankles. The plantar responses were flexor bilaterally. STANCE: She stood up independently. GAIT: She walked well independently with a more normal pace. Impression/Recommendations Diagnostic Impression 1. Ms. Mlii Pressley is a 62-year-old, right-handed, black lady, who does have a past history of hypertension, coronary artery disease, cerebrovascular disease with prior strokes, and left paresis, arthritis, chronic low back pain, and prior episodes of syncope who on 01/19/2018 was showering, felt lightheaded and then passed out in the shower. She was brought into the hospital for increased buttock and low back pain. A CT scan of the cervical spine apparently revealed a stenosis at the C6-C7 level. 2. She feels much better. She has had no further episodes of dizziness, lightheadedness, or syncope. The buttock pain is also much better. She is able to walk well. She had her C-spine MRI which revealed mild DJD but no cord pathology. She denies any new neurologic symptoms. 3. On neurological examination at this time, she does have problems with orientation, recent and remote memory, higher cognitive function, and language. She also has brisker reflexes on the left side compared to the right side. Her gait at a more normal pace. She does not demonstrate any signs of the cervical spinal cord dysfunction. 4. The MRI of the C-spine done on 01/20/18 revealed no significant spinal stenosis. 5. Further laboratory tests have all been benign. 6. The patient's history and neurologic examination are most compatible with an episode of vasovagal syncope. 7. The cervical spinal stenosis is not producing any myelopathic signs or symptoms at this time. Recommendations 1. Continue present management. 2. Increase activity. 3. Can be sent to comfort of home from neurologic point of view. Vicente Young M.D., M.S.P.Gilda. IVCENTE YOUNG Jan 21, 2018 15:55
[2018-01-21 16:00] VITALS: BP 133/79
[2018-01-21] MEDS ORDERED: REMERON15 M1 ORAL (16:02)
--- NOTE | 2018-01-21 23:59 | Consultation ---
History of Present Illness General Date patient seen: Jan 19, 2018 Chief Complaint: Lower Back Pain or Injury Present Illness Allergies: Coded Allergies: No Known Allergies (Unverified , 01/19/18) Medication History Scheduled Mirtazapine (Remeron), 7.5 MG ORAL BEDTIME, (Reported) Patient History History Provided By: Patient, Medical Record, PMD Healthcare decision maker opal Resuscitation status Full Code Advanced Directive on File No Review of Systems Psychiatric: Reports: prior hx, anxiety, depressed feelings Neurological: Reports: headache Physical Exam General Appearance: no apparent distress, alert Neurologic: oriented x 3, responsive, depressed affect Last 24 Hour Vital Signs Date Time Temp Pulse Resp B/P (MAP) Pulse Ox O2 Delivery O2 Flow Rate FiO2 01/21/18 16:00 98.2 68 18 133/79 (97) 100 98.2 01/21/18 16:00 70 01/21/18 13:29 86 18 98 Room Air 21 01/21/18 13:29 86 18 98 Room Air 21 01/21/18 12:00 98.1 76 18 132/86 (101) 96 98.1 01/21/18 12:00 72 01/21/18 09:01 73 140/88 01/21/18 09:00 Room Air 01/21/18 08:59 140/88 01/21/18 08:59 73 140/88 01/21/18 08:00 97.9 80 18 140/88 (105) 95 97.9 01/21/18 08:00 73 01/21/18 07:28 74 18 100 Room Air 21 01/21/18 07:22 84 18 99 Room Air 21 01/21/18 04:00 98.1 71 12 122/95 (104) 95 98.1 01/21/18 04:00 70 01/21/18 01:32 80 20 98 Room Air 21 01/21/18 01:22 78 16 100 Room Air 21 01/21/18 00:00 98.1 73 20 142/82 (102) 96 98.1 01/21/18 00:00 76 Intake and Output 01/20/18 01/21/18 19:00 07:00 Intake Total 720 ml 300 ml Output Total 0 ml Balance 720 ml 300 ml Intake Oral 720 ml 300 ml Output Urine Total 0 ml # Voids 3 # Bowel Movements 1 Height (Feet): 5 Height (Inches): 4.00 Weight (Pounds): 198 Assessment/Plan Status: stable, progressing Assessment/Plan anxious and unable to sleep remeron 7.5mg qhs provided ro/Yesica Land MD Jan 21, 2018 23:59
--- NOTE | 2018-01-25 09:06 | Discharge Summary ---
Discharge Summary Discharge Summary _ DATE OF ADMISSION: 01/19/2018 DATE OF DISCHARGE: 01/21/2018 REASON FOR ADMISSION: 62 years old female with past medical history of hypertensive cardiovascular disease, ischemic heart disease, status post coronary stenting, hyperlipidemia, chronic kidney disease, degenerative joint disease, presented to emergency department after fall. Patient reported hitting her head. Patient reported dizziness and brief loss of consciousness, while in the shower. Following the fall , patient started to have severe headaches. She came to emergency room for evaluation. Upon evaluation blood pressure was severely elevated 174/106. Troponin negative. EKG revealed normal sinus rhythm, no acute ischemic changes . Stable laboratory values. Urinalysis revealed no evidence of urinary tract infection. CT of the head revealed no acute intracranial bleeding or mass effect. Cervical spine CT showed significant disc budging versus protrusion at level C6 -7. Mild degenerative changes overall. No acute bony trauma. Incidental finding of bilateral apical pulmonary bullous changes. CT scan of abdomen and pelvis revealed no acute abnormalities. Evidence of bullous COPD. Borderline cardiomegaly. Patient admitted with diagnoses of syncopal episode, hypertensive cardiovascular disease, hypertensive urgency, ischemic heart disease, status post coronary stenting, hyperlipidemia, chronic kidney disease, degenerative joint disease, C6-7 disc bulge on imaging. CONSULTANTS: neurologist Dr. Young psychiatrist [facility]SE: Patient admitted to monitored floor. Findings were discussed with the spine surgeon at Dr. Cassidy Herbert ( since no neurosurgeon available at this facility). Patient was placed on transfer list for higher level of care. Patient was on bedrest. Neurology evaluation was requested. MRI of the C-spine subsequently was done and revealed mild degenerative disc narrowing at C 6-7. No significant disc bulge or protrusion, spinal stenosis or neural foraminal stenosis. No acute bony trauma ,acute ligamentous injury or abnormal contrast enhancement noted. Patient was closely monitored on telemetry floor , no evidence of arrhythmia. Blood pressure was managed with multiply regimen of antihypertensive medications, including calcium channel yoni, beta yoni, angiotensin receptor yoni and diuretic/chlorthalidone. Blood pressure stabilized with this regimen. DVT prophylaxis provided. Antiplatelet therapy with aspirin continued. Supplemental oxygen provided as needed to keep pulse oximetry above 92%. Pulmonary toilet was on standby as needed. Fall precautions maintained. Neurologist seen and evaluated patient and closely reviewed C-spine MRI, concluding that it revealed mild DJD , but no cord pathology. Per neurologist, patient history and neurological examination were most compatible with episode of vasovagal syncope. Cervical spinal stenosis was not producing any myelopathic signs or symptoms at this time. Neurologist recommended continue present management and increase activity. Serum protein electrophoresis was within normal limits. B 12, folate levels, TSH, HgA1c all within normal limits. RPR negative. ESR with mild elevation-39. Fall precautions were maintained . Blood pressure stabilized. Patient was able to walk independently. Bowel regimen instituted. Renal parameters and electrolytes were closely monitored, electrolytes corrected as needed, and nephrotoxics were avoided. Psychiatry seen and evaluated the patient , and diagnosed patient with anxiety and inability to sleep. Patient started on low-dose of Remeron. Patient clinically improved, no need for transfer to higher level of care, since MRI of C spine was negative. Findings were communicated with the neurosurgeon Dr.Eli Herbert at . Patient was stable for discharge home. FINAL DIAGNOSES: Syncopal episode, probably vasovagal Hypertensive urgency-resolved Hypertensive cardiovascular disease Ischemic heart disease Hyperlipidemia Chronic kidney disease Status post cardiac stenting Degenerative joint disease Anxiety DISCHARGE MEDICATIONS: See Medication Reconciliation list. DISCHARGE INSTRUCTIONS: Patient was discharged home . Follow up with primary care provider in one week. I have been assigned to dictate discharge summary for this account. I was not involved in the patient's management. Drea Fenton NP Jan 25, 2018 09:06
== END 2018-01-21 16:25 | disposition home or self-care (01) | DRG 312 ==
LOC: EMR 17:06 → 2E 17:40 → EDBEDREQ 21:30 → 3E 22:29 → 2E 01-20 18:17
DX: R55 Syncope and collapse (principal); I69.354 Hemiplegia and hemiparesis following cerebral infarction affecting left non-dominant side; F48.8 Other specified nonpsychotic mental disorders; I16.0 Hypertensive urgency; I13.10 Hypertensive heart and chronic kidney disease without heart failure, with stage 1 through stage 4 chronic kidney disease, or unspecified chronic kidney disease; N18.9 Chronic kidney disease, unspecified; I25.9 Chronic ischemic heart disease, unspecified; I25.10 Atherosclerotic heart disease of native coronary artery without angina pectoris; Z95.1 Presence of aortocoronary bypass graft; E78.5 Hyperlipidemia, unspecified; M19.90 Unspecified osteoarthritis, unspecified site; Z79.82 Long term (current) use of aspirin; M50.223 Other cervical disc displacement at C6-C7 level; M48.02 Spinal stenosis, cervical region; Z87.891 Personal history of nicotine dependence; G89.29 Other chronic pain; M54.5 Low back pain; F41.9 Anxiety disorder, unspecified
CPT/HCPCS: 36415; 70450; 72125; 72156; 74176; 80053; 81003; 82306; 82607; 82746; 83036; 84165; 84443; 84484; 85025; 85651; 86592; 93005; 94640; 94664; 96374; 99285; A9585; J7620